=== PATIENT | female | born 1945 | race Two or more races ===

== ENCOUNTER 2018-01-27 09:54 | Emergency (ER) | payer OTHER ==
[~2018-01-27] VITALS: Ht 170.2 cm; Wt 72.6 kg
[~2018-01-27 09:54] MED LIST: VERAPAMIL ER240 MG; YANUMET; [UNRECOGNIZED DRUG - OTHER]
[2018-01-27] MEDS ORDERED: JANUMET 50-1,01 EACH PO (10:01)
[2018-01-27] MEDS ORDERED: HYZAAR 100-251 EACH PO (10:01)
[2018-01-27] MEDS ORDERED: VERAPAMIL ER120 MG PO (10:02)
[2018-01-27] MEDS ORDERED: ACTOS15 MG PO (10:02)
== END 2018-01-27 16:04 | disposition home or self-care (01) ==
LOC: ER 09:54
DX: R11.2 Nausea with vomiting, unspecified (principal); T40.4X5A Adverse effect of other synthetic narcotics, initial encounter; Y92.89 Other specified places as the place of occurrence of the external cause

== ENCOUNTER 2018-06-18 09:38 | Emergency (ER) | payer OTHER ==
[~2018-06-18] VITALS: Ht 167.6 cm; Wt 73.9 kg
[~2018-06-18 09:38] MED LIST changes: +ACTOS15 MG PO; +HYZAAR 100-251 EACH PO; +JANUMET 50-1,01 EACH PO; +VERAPAMIL ER120 MG PO
[2018-06-18] MEDS ORDERED: INTESTINEX680 M1 PO (13:53)
[2018-06-18] MEDS ORDERED: ZANTAC150 MG PO (13:53)
== END 2018-06-18 14:02 | disposition home or self-care (01) ==
LOC: ER 09:38
DX: K29.70 Gastritis, unspecified, without bleeding (principal); R11.11 Vomiting without nausea

== ENCOUNTER 2018-12-20 12:48 | Emergency (ER) | payer OTHER ==
[~2018-12-20] VITALS: Ht 170.2 cm; Wt 66.7 kg
[~2018-12-20 12:48] MED LIST changes: +INTESTINEX680 M1 PO; +ZANTAC150 MG PO
[2018-12-20] MEDS ORDERED: ZITHROMAX500 MG PO (15:55)
[2018-12-20] MEDS ORDERED: DELSYM30 MG/5 M1 PO (15:55)
== END 2018-12-20 16:00 | disposition home or self-care (01) ==
LOC: ER 12:48
DX: R05 Cough (principal); R10.9 Unspecified abdominal pain

== ENCOUNTER 2019-03-03 14:59 | Emergency (ER) | payer OTHER ==
[~2019-03-03] VITALS: Ht 167.6 cm; Wt 72.6 kg
[~2019-03-03 14:59] MED LIST changes: +DELSYM30 MG/5 M1 PO; +ZITHROMAX500 MG PO
[2019-03-03] MEDS ORDERED: PROMETH-CODEIN 65 ML PO (19:17)
[2019-03-03] MEDS ORDERED: NEBUSAL4 M1 IH (19:17)
== END 2019-03-03 20:21 | disposition home or self-care (01) ==
LOC: ER 14:59
DX: J06.9 Acute upper respiratory infection, unspecified (principal); R53.1 Weakness

== ENCOUNTER 2019-12-01 16:28 | Inpatient (IN) | payer OTHER ==
[~2019-12-01] VITALS: Ht 152.4 cm; Wt 64.9 kg
[~2019-12-01 16:28] MED LIST changes: +NEBUSAL4 M1 IH; +PROMETH-CODEIN 65 ML PO
[2019-12-01] MEDS ORDERED: ACTOS15 MG (16:46)
[2019-12-05] MEDS ORDERED: LEVAQUIN500 MG PO (11:48)
[2019-12-05] MEDS ORDERED: PEPCID AC20 MG PO (11:48)
[2019-12-05] MEDS ORDERED: CARAFATE1 GM PO (11:48)
[2019-12-05] MEDS ORDERED: OMEPRAZOLE40 MG PO (11:48)
== END 2019-12-05 12:19 | disposition home or self-care (01) | DRG 558 ==
LOC: ER 16:28 → MEDJ 19:25 → MEDI 19:25
PROVIDERS: ADMIT Internal Medicine; ATTEND Internal Medicine
PROC: 3E0F7GC Introduction of Other Therapeutic Substance into Respiratory Tract, Via Natural or Artificial Opening (ICD-10-PCS; 2019-12-02)
PROC: 0D758ZZ Dilation of Esophagus, Via Natural or Artificial Opening Endoscopic (ICD-10-PCS; principal; 2019-12-03)
PROC: BQ30ZZZ Magnetic Resonance Imaging (MRI) of Right Hip (ICD-10-PCS; 2019-12-03)
PROC: B44HZZZ Ultrasonography of Bilateral Lower Extremity Arteries (ICD-10-PCS; 2019-12-04)
DX: M70.71 Other bursitis of hip, right hip (principal); M85.88 Other specified disorders of bone density and structure, other site; I10 Essential (primary) hypertension; Z98.61 Coronary angioplasty status; E11.9 Type 2 diabetes mellitus without complications; R13.14 Dysphagia, pharyngoesophageal phase; K22.2 Esophageal obstruction; K44.9 Diaphragmatic hernia without obstruction or gangrene; I70.203 Unspecified atherosclerosis of native arteries of extremities, bilateral legs; Z96.642 Presence of left artificial hip joint; Z79.4 Long term (current) use of insulin
CPT/HCPCS: 73221

== ENCOUNTER 2023-12-26 15:33 | Emergency (ER) | payer OTHER ==
[~2023-12-26] VITALS: Ht 160 cm; Wt 65.8 kg
[~2023-12-26 15:33] MED LIST changes: +ACTOS15 MG; +CARAFATE1 GM PO; +LEVAQUIN500 MG PO; +OMEPRAZOLE40 MG PO; +PEPCID AC20 MG PO
[2023-12-26] MEDS ORDERED: KETOROLAC TROMETHAMINE 60 MG VIAL IM STA (17:33)
[2023-12-26] MEDS ORDERED: DEXAMETHASONE SODIUM PHOSPHATE 4 MG/ML VIAL IM STA (17:34)
[2023-12-26] MEDS ORDERED: DEXAMETHASONE SODIUM PHOSPHATE 4 MG/ML VIAL ONE (17:40)
[2023-12-26] MEDS ORDERED: KETOROLAC TROMETHAMINE 60 MG VIAL IM ONE (17:40)
== END 2023-12-26 18:19 | disposition home or self-care (01) ==
LOC: ER 15:34
DX: M19.032 Primary osteoarthritis, left wrist (principal)
CPT/HCPCS: 96372; 99282; J1100; J1885

== ENCOUNTER 2024-03-30 14:23 | Inpatient (IN) | payer OTHER ==
[~2024-03-30] VITALS: Ht 167.6 cm; Wt 68.0 kg
--- NOTE | 2024-03-30 14:36 | NUR ---
PACIENTE ALERTA Y ORIENTADA X 3, ACOMPANADA DE [place]. ESTA REFIERE DESDE LA 1PM ESTA DESORIENTADA.
[2024-03-30] MEDS ORDERED: GLYXAMBI 10 MG1 EACH PO (14:42)
[2024-03-30] MEDS ORDERED: LANTUS SOL100 UNIT/1 SQ (14:43)
[2024-03-30] MEDS ORDERED: ONDANSETRON HCL 2 MG/ML VIAL IV STA (16:40)
[2024-03-30 16:52] LABS: URINE APPEARANCE Clear; URINE BILIRRUBIN Negative (NEGATIVE); URINE BLOOD Moderate; URINE COLOR Yellow; URINE KETONE Negative (NEGATIVE); URINE LEUKOCYTE Large; URINE NITRATE Negative; URINE PROTEIN Negative (NEGATIVE); URINE UROBILINOGEN 0.2 E.U./dl
[2024-03-30 16:55] LABS: URINE BACTERIA 186.4 uL (0.0-1933); URINE EPITHELIAL CELLS 7.2 uL (0.0-38.8); URINE RBC 8.7 uL (0.0-20.8); URINE WBC 681.9 uL (0.0-23.2)
[2024-03-30 16:56] LABS: URINE CAST 0.15 uL (0.0-1.40); URINE GLUCOSE >=1000 MG/DL (NEGATIVE)
[2024-03-30] MEDS ORDERED: DEXTROSE 5 % AND 0.9 % NACL 500 ML IV SCH (17:00)
[2024-03-30 17:06] LABS: HEMATOCRIT 35.1 % (36.0-45.00); HEMOGLOBIN 11.3 g/dL (12.0-15.00); MEAN CELL VOLUME 80.9 fL (80.00-100.00); MEAN CORPUSCULAR HGB CONC 32.1 g/dl (32.0-36.0); PLATELET COUNT 283 K/uL (150-450); RED BLOOD COUNT 4.33 M/uL (4.00-6.00); RED CELL DISTRIBUTION WIDTH 14.2 % (11.5-14.5)
--- NOTE | 2024-03-30 17:20 | NUR ---
PACIENTE EVALUADA POR MD FRAGAIEN ORDENA TRATAMIENTO MEDICO, SE LE ORIENTA A FAMILIAR SOBRE EL MISMO Y REFIERE ENTENDER, SE LE COLECTAN MUESTRAS, SE CANALIZA Y SE ADMINSITRAN MEDICAMENTOS BAJO MEDIDAS ASEPTICAS, JIHAN ORDENA VERBALMENTE COLOCAR IV FLUIDS LUEGO DE QUE LE REALICEN EL ESTUDIO A PACIENTE.
[2024-03-30 17:34] LABS: ALBUMIN 3.8 gm/dL (3.4-5.0); BILIRUBIN TOTAL 0.45 mg/dL (0.3-1.2); CALCIUM 9.6 mg/dL (8.5-10.1); CREATININE SERUM 1.7 mg/dL (0.55-1.02); GFR 28.99; POTASSIUM 4.35 mEq/L (3.5-5.1); TOTAL PROTEIN 7.8 gm/dL (6.4-8.2)
[2024-03-30] MEDS ORDERED: INSULIN LISPRO 1,000 UNIT/10 ML UNITS SUBCUTANEO PRN (21:30)
[2024-03-30] MEDS ORDERED: DEXTROSE 50 % IN WATER 0.5 G/ML DISP.SYRIN IV PRN (21:30)
[2024-03-30] MEDS ORDERED: 0.9 % SODIUM CHLORIDE 1,000 ML IV SCH (21:45)
[2024-03-30] MEDS ORDERED: ACETAMINOPHEN 325 MG TABLET PO PRN (21:45)
[2024-03-30 23:58] VITALS: BP 120/65; O2SAT 100
[2024-03-31 00:09] VITALS: BP 120/65
[2024-03-31] MEDS ORDERED: VERAPAMIL HCL 120 MG TABLET PO SCH (09:00)
[2024-03-31] MEDS ORDERED: LOSARTAN/HYDROCHLOROTHIAZIDE 1 UDTAB TABLET PO SCH (09:00)
[2024-03-31] MEDS ORDERED: CEFTRIAXONE SODIUM 2,000 MG in 0.9 % SODIUM CHLORIDE 100 ML IV SCH (09:00)
[2024-03-31] MEDS ORDERED: FAMOTIDINE/PF 20 MG/2 ML VIAL IV SCH (09:00)
[2024-03-31] MEDS ORDERED: hydrALAZINE HCL 25 MG TABLET PO SCH (09:00)
[2024-03-31] MEDS ORDERED: ENOXAPARIN SODIUM 30 MG/0.3 ML SYRINGE SUBCUTANEO SCH (09:00)
[2024-03-31 09:32] VITALS: BP 136/66; O2SAT 100
[2024-03-31 16:00] VITALS: BP 128/64; O2SAT 99
[2024-03-31] MEDS ORDERED: PATIENTS OWN MEDICATION (MEDICAMENTO EN PISO) PO SCH (17:00)
[2024-03-31] MEDS ORDERED: INSULIN GLARGINE,HUM.REC.ANLOG 1,000 UNITS/10 ML UNITS SUBCUTANEO SCH (21:00)
[2024-04-01 00:23] VITALS: BP 130/54; O2SAT 100
[2024-04-01 05:15] LABS: HEMATOCRIT 31.5 % (36.0-45.00); HEMOGLOBIN 10.3 g/dL (12.0-15.00); MEAN CELL VOLUME 81.2 fL (80.00-100.00); MEAN CORPUSCULAR HEMOGLOBIN 26.5 pg (27.00-32.0); MEAN CORPUSCULAR HGB CONC 32.6 g/dl (32.0-36.0); PLATELET COUNT 231 K/uL (150-450); RED BLOOD COUNT 3.88 M/uL (4.00-6.00)
[2024-04-01 05:46] LABS: ALBUMIN 2.9 gm/dL (3.4-5.0); BILIRUBIN TOTAL 0.38 mg/dL (0.3-1.2); CALCIUM 8.8 mg/dL (8.5-10.1); CREATININE SERUM 1.24 mg/dL (0.55-1.02); GFR 41.73; GLOBULINA 2.9 G/DL (2.4-3.5); MAGNESIUM 1.8 mg/dL (1.8-2.4); POTASSIUM 4.31 mEq/L (3.5-5.1); TOTAL PROTEIN 5.8 gm/dL (6.4-8.2)
[2024-04-01 05:51] LABS: C-REACTIVE PROTEIN 0.36 MG/DL (0.00-0.29)
[2024-04-01 08:50] VITALS: BP 132/58; O2SAT 99
[2024-04-01] MEDS ORDERED: QUETIAPINE FUMARATE 25 MG TABLET PO SCH (21:00)
[2024-04-02 04:00] VITALS: BP 124/57; O2SAT 99
[2024-04-02 08:53] VITALS: BP 139/59; O2SAT 100
[2024-04-02] MEDS ORDERED: PANTOPRAZOLE SODIUM 40 MG TABLET.DR PO SCH (09:00)
[2024-04-02 17:59] VITALS: BP 145/63; O2SAT 100
[2024-04-02] MEDS ORDERED: QUETIAPINE FUMARATE 25 MG TABLET PO SCH (21:00)
[2024-04-03 01:16] VITALS: BP 144/56; O2SAT 99
[2024-04-03] MEDS ORDERED: INSULIN LISPRO 1,000 UNIT/10 ML UNITS SUBCUTANEO SCH (08:00)
[2024-04-03] MEDS ORDERED: CLOPIDOGREL BISULFATE 75 MG TABLET PO SCH (09:00)
[2024-04-03 09:13] VITALS: BP 143/62; O2SAT 96
[2024-04-03 17:46] VITALS: BP 143/70; O2SAT 98
[2024-04-04 00:57] VITALS: BP 145/63; O2SAT 96
[2024-04-04] MEDS ORDERED: INSULIN GLARGINE,HUM.REC.ANLOG 1,000 UNITS/10 ML UNITS SUBCUTANEO SCH (09:00)
[2024-04-04] MEDS ORDERED: FAMOtidine 20 MG TABLET PO SCH (09:00)
[2024-04-04] MEDS ORDERED: VERAPAMIL HCL120 M3 PO (09:25)
[2024-04-04] MEDS ORDERED: CLOPIDOGREL BIS75 MG PO (09:25)
[2024-04-04] MEDS ORDERED: HYDRALAZINE HCL25 MG PO (09:25)
[2024-04-04] MEDS ORDERED: PANTOPRAZOLE SO40 MG PO (09:26)
[2024-04-04] MEDS ORDERED: FAMOTIDINE20 MG PO (09:26)
[2024-04-04] MEDS ORDERED: QUETIAPINE FUMA25 MG PO (09:26)
[2024-04-04 09:39] VITALS: BP 156/68; O2SAT 97
== END 2024-04-04 15:01 | disposition home or self-care (01) | DRG 871 ==
LOC: ER 14:24 → MEDI 21:39
PROVIDERS: Internal Medicine Infectious Disease; ADMIT Internal Medicine; ATTEND Internal Medicine
PROC: BW28ZZZ Computerized Tomography (CT Scan) of Head (ICD-10-PCS; principal; 2024-03-30)
PROC: B030ZZZ Magnetic Resonance Imaging (MRI) of Brain (ICD-10-PCS; 2024-04-01)
PROC: B345ZZZ Ultrasonography of Bilateral Common Carotid Arteries (ICD-10-PCS; 2024-04-01)
PROC: B246ZZZ Ultrasonography of Right and Left Heart (ICD-10-PCS; 2024-04-01)
PROC: 4A12X4Z Monitoring of Cardiac Electrical Activity, External Approach (ICD-10-PCS; 2024-04-01)
DX: A41.51 Sepsis due to Escherichia coli [E. coli] (principal); G93.41 Metabolic encephalopathy; N39.0 Urinary tract infection, site not specified; N18.4 Chronic kidney disease, stage 4 (severe); R41.82 Altered mental status, unspecified; E11.65 Type 2 diabetes mellitus with hyperglycemia; E11.22 Type 2 diabetes mellitus with diabetic chronic kidney disease; Z79.4 Long term (current) use of insulin; D72.828 Other elevated white blood cell count
CPT/HCPCS: 70553